=== PATIENT | female | born 1975 | race American Indian/Alaskan Native ===

== ENCOUNTER 2017-11-30 05:06 | Inpatient (IN) | payer MEDICAID ==
[2017-11-30] MEDS ORDERED: LACTATED RINGERS 1,000 ML ONE (05:46)
[2017-11-30] MEDS ORDERED: PITOCin/NS 20 UNIT/1000ML DRIP 20,000 MILLIUNITS/1,000 ML BAG IV ONE (05:58)
--- NOTE | 2017-11-30 06:09 | History and Physical Report ---
History of Present Illness Date of examination: 11/30/17 Date of admission: 11/30/17 05:39 Chief complaint: Painful contractions History of present illness: 42-year-old at 40+2 weeks presents in active labor, she is a [facility] patient. care has been unremarkable per patient. GBS unknown and I have no records at this time She is currently 8 cm dilated with bulging membranes, cephalic presentation Past History Past Medical History: no pertinent history Past Surgical History: no surgical history [employer] History: denies: chlamydia, gonorrhea, hepatitis B, hepatitis C, herpes, HIV , syphilis Social history: full code. denies: Lives alone, lives with family, smoking - Obstetrical History Expected Date of Delivery: 11/28/17 Actual Gestation: 40 Week(s) 2 Day(s) : 6 Para: 4 Medications and Allergies Allergies Allergy/AdvReac Type Severity Reaction Status Date / Time No Known Allergies Allergy Unverified 08/22/15 14:03 Home Medications Medication Instructions Recorded Confirmed Last Taken Type Nitrofurantoin Inyo/M-Cryst 100 mg PO Q12HR #14 capsule 08/22/15 Unknown Rx [Macrobid CAP] metroNIDAZOLE 0.75% [Vandazole 1 applicator VG QHS #1 tube 08/22/15 Unknown Rx 0.75% VAGINAL] Review of Systems Constitutional: no fever, no chills, no anorexia, no malaise Respiratory: no cough, no cough with sputum, no shortness of breath, no dyspnea on exertion Gastrointestinal: no abdominal pain, no nausea, no vomiting Genitourinary: contractions, no vaginal bleeding, no leakage of fluid - Vital Signs Vital signs: Vital Signs Pulse Pulse Ox 105 H 100 11/30/17 05:49 11/30/17 05:49 Temp Pulse Resp BP Pulse Ox 112 H 99 11/30/17 06:04 11/30/17 06:04 - Physical Exam Abdomen: Positive: normal appearance, soft. Negative: distention, tenderness, guarding, rigidity Genitourinary (Female): Positive: normal external genitalia Uterus: Positive: enlarged (EFW ~ 3500) Adnexa: both: normal Extremities: Positive: normal - Obstetrical FHR: category 1 Cervical Dilatation: 8.5 station: -1 Results All other labs normal. Assessment and Plan A: 42-year-old at 40+2 weeks in labor -Cat 1 tracing P: -Admit -Routine labs -AROMed with clear fluid -Anticipate normal vaginal delivery - Patient Problems (1) 40 weeks gestation of Current Visit: Yes Status: Acute (2) Active labor at term Current Visit: Yes Status: Acute
[2017-11-30] MEDS ORDERED: PITOCin/NS 30 UNIT/500ML 30,000 MILLIUNITS/500 ML BAG IV ONE (06:29)
[2017-11-30] MEDS ORDERED: SUBLIMAZE ONE (06:30)
--- NOTE | 2017-11-30 07:44 | Anesthesia Consultation ---
Anesthesia Consult and Med Hx Date of service: 11/30/17 - Airway Anesthetic Teeth Evaluation: Good ROM Head & Neck: Adequate Mental/Hyoid Distance: Adequate Mallampati Class: Class II Intubation Access Assessment: Probably Good - Pre-Operative Health Status ASA Pre-Surgery Classification: ASA2 Proposed Anesthetic Plan: Epidural, Spinal - Pulmonary Hx Asthma: No COPD: No Hx Pneumonia: No - Cardiovascular System Hx Hypertension: No - Central Nervous System Hx Seizures: No Hx Psychiatric Problems: No - Endocrine Hx Renal Disease: No Hx End Stage Renal Disease: No Hx Hypothyroidism: No Hx Hyperthyroidism: No - Hematic Hx Anemia: No Hx Sickle Cell Disease: No - Other Systems Hx Alcohol Use: No
--- NOTE | 2017-11-30 07:45 | Anesthesia Day of Surgery ---
Anesthesia Day of Surgery - Day of Surgery Patient Examined: Yes Patient H&P Reviewed: Yes Patient is NPO: Yes
[2017-11-30] MEDS ORDERED: LACTATED RINGERS 2,000 ML ONE (07:47)
[2017-11-30] MEDS ORDERED: PEPCID IV ONE (07:56)
[2017-11-30] MEDS ORDERED: BICITRA ONE (07:56)
[2017-11-30] MEDS ORDERED: SODIUM CHLORIDE FLUSH SYRINGE 10 ML IV PRN ×2 (08:00→09:00)
[2017-11-30] MEDS ORDERED: SUBLIMAZE IV NR (08:00)
--- NOTE | 2017-11-30 08:28 | Procedure Note ---
OB Delivery Note - Delivery Date of Delivery: 11/30/17 Surgeon: SHARON SHETTY Estimated blood loss: 100cc - Vaginal Delivery presentation: vertex Delivery position: OA Delivery induction: none Delivery augmentation: rupture of membranes Delivery monitor: external FHT, external uterine Route of delivery: Delivery placenta: spontaneous Delivery cord: 3 umbilical vessels Episiotomy: none Delivery laceration: 1st degree (not repaired) Anesthesia: none - A at 1 minute: 8 at 5 minutes: 9 Gender: Female (female time of delivery 8:13 AM, weight 7 lbs. 1 oz. or 3212 g)
[2017-11-30] MEDS ORDERED: ZOFRAN IV PRN ×2 (08:30→10:00)
[2017-11-30] MEDS ORDERED: TORADOL IV PRN (08:30)
[2017-11-30] MEDS ORDERED: DILAUDID IV PRN (08:30)
[2017-11-30] MEDS ORDERED: PHENERGAN PR PRN ×2 (08:30→10:00)
[2017-11-30] MEDS ORDERED: PHENERGAN PO PRN ×2 (08:30→10:00)
[2017-11-30] MEDS ORDERED: NARCAN 0.4 MG/1 ML IV PRN (08:30)
[2017-11-30] MEDS ORDERED: BENADRYL IV PRN (08:30)
[2017-11-30] MEDS ORDERED: PITOCin/NS 20 UNIT/1000ML DRIP 20 UNITS/1,000 ML BAG IV SCH (09:00)
[2017-11-30] MEDS ORDERED: LANSINOH TP PRN (09:30)
[2017-11-30] MEDS ORDERED: BENADRYL PO PRN (09:30)
[2017-11-30] MEDS ORDERED: TYLENOL PO PRN (09:30)
[2017-11-30 09:34] LABS: Hematocrit 30.2 % (30.3-42.9); Hemoglobin 9.6 gm/dl (10.1-14.3); Mean Corpuscular HGB Conc 32 % (30-34); Mean Corpuscular Volume 72 fl (79-97); Platelet Count 319 K/mm3 (140-440); Red Blood Count 4.19 M/mm3 (3.65-5.03)
[2017-11-30 09:55] LABS: Mean Corpuscular Hemoglobin 23 pg (28-32)
[2017-11-30 09:56] LABS: Red Cell Distribution Width 20.4 % (13.2-15.2)
[2017-11-30] MEDS ORDERED: DULCOLAX PR PRN (10:00)
[2017-11-30] MEDS ORDERED: TUCKS PAD TP PRN (10:00)
[2017-11-30] MEDS ORDERED: ANUCORT-HC PR PRN (10:00)
[2017-11-30] MEDS: NORCO 5/325 PO PRN ×2 (14:00→20:11)
[2017-11-30] MEDS: MOTRIN PO SCH ×2 (14:01→20:11)
[2017-11-30 21:14] LABS: Hematocrit 27.5 % (30.3-42.9); Hemoglobin 8.6 gm/dl (10.1-14.3)
[2017-11-30] MEDS ORDERED: MILK OF MAGNESIA PO PRN (22:00)
[2017-11-30] MEDS: FEOSOL PO SCH (22:00)
[2017-11-30] MEDS: SENOKOT S PO SCH (22:01)
[2017-11-30] MEDS: COLACE PO SCH (22:01)
[2017-12-01] MEDS: NORCO 5/325 PO PRN ×3 (02:32→23:28)
[2017-12-01] MEDS: MOTRIN PO SCH ×6 (02:33→23:28)
[2017-12-01] MEDS ORDERED: BOOSTRIX IM ONE (06:00)
--- NOTE | 2017-12-01 08:26 | Progress Note ---
Assessment and Plan - Patient Problems (1) (normal spontaneous vaginal delivery) Onset Date: 12/01/17 Current Visit: Yes Status: Resolved Plan to address problem: A: S/P - PPD #1 Doing well Asymptomatic anemia - stable P: May go home tomorrow. Subjective - Subjective Date of service: 12/01/17 Principal diagnosis: s/p - PPD #1 Interval history: Pt is feeling well except abdominal cramps. Bleeding improved. Patient reports: appetite normal, voiding normally, pain well controlled, flatus , ambulating normally : doing well, nursing well Objective - Vital Signs Latest vital signs: Vital Signs Temp Pulse Resp BP BP Pulse Ox 12/01/17 00:25 98.2 F 70 18 96/64 11/30/17 19:37 98.8 F 87 20 90/56 11/30/17 15:53 98.4 F 78 18 114/64 99 11/30/17 11:15 99.0 F 76 18 104/53 99 11/30/17 10:26 85 110/62 11/30/17 10:11 84 106/60 11/30/17 09:56 100 H 116/66 11/30/17 09:45 90 18 115/67 11/30/17 09:41 90 115/67 11/30/17 09:30 85 18 100/58 11/30/17 09:26 85 100/58 11/30/17 09:15 95 H 18 111/57 11/30/17 09:11 95 H 111/57 11/30/17 09:04 97 H 99 11/30/17 09:00 93 H 18 112/61 11/30/17 08:59 92 H 99 11/30/17 08:56 93 H 112/61 11/30/17 08:54 96 H 97 11/30/17 08:49 97 H 99 11/30/17 08:45 98.9 F 109 H 18 114/67 100 11/30/17 08:44 99 H 100 11/30/17 08:41 109 H 114/67 Intake and Output 11/30/17 12/01/17 12/01/17 22:59 06:59 14:59 Intake Total 480 360 Output Total 400 Balance 80 360 Intake: Oral 480 Intake, Free Water 360 Output: Urine 400 Void 400 Other: Total, Intake Amount 240 Total, Output Amount 400 # Voids Void 400 1 - Exam Breasts: Present: deferred Cardiovascular: Present: Regular rate Lungs: Present: Clear to auscultation Abdomen: Present: normal appearance, soft Uterus: Present: normal, firm, fundal height below umbilicus Extremities: Present: normal - Labs Labs: Abnormal lab results 11/30/17 11/30/17 Range/Units 21:05 Unknown Hgb 8.6 L 9.6 L (10.1-14.3) gm/dl Hct 27.5 L 30.2 L (30.3-42.9) % MCV 72 L (79-97) fl MCH 23 L (28-32) pg RDW 20.4 H (13.2-15.2) % Laboratory Tests 11/30/17 11/30/17 11/30/17 05:50 21:05 Unknown WBC 10.0 RBC 4.19 Hgb 8.6 L 9.6 L Hct 27.5 L 30.2 L MCV 72 L MCH 23 L MCHC 32 RDW 20.4 H Plt Count 319 Blood Type O POSITIVE Antibody Screen Negative
--- NOTE | 2017-12-01 08:28 | Discharge Summary ---
Providers - Providers Date of Admission: 11/30/17 05:39 Date of discharge: 12/02/17 Attending physician: SHARON SHETTY Primary care physician: SHARON SHETTY Hospitalization Reason for admission: active labor, IUP at term Delivery: Episiotomy: none Laceration: 1st degree Incision: normal Other procedures: none complications: none Discharge diagnosis: IUP at term delivered baby: female Hospital course: Unremarkable. Condition at discharge: Good Disposition: DC-01 TO HOME OR SELFCARE - Discharge Diagnoses (1) (normal spontaneous vaginal delivery) Status: Resolved Plan - Discharge Medications Prescriptions: HYDROcodone/ACETAMINOPHEN [Rosamond 5-325 Tablet] 1 each PO Q6HR #10 tablet Ibuprofen [Motrin 600 MG tab] 600 mg PO Q8H PRN #30 tablet PRN Reason: Pain Multivitamin with Iron [Multivitamins with Iron] 1 each PO DAILY #30 tablet - Provider Discharge Summary Activity: routine, no sex for 6 weeks, no heavy lifting 4 weeks, no strenuous exercise Diet: routine Instructions: routine Additional instructions: [] Smoking cessation referral if applicable(refer to patient education folder for contact #) [] Refer to [facility] Booklet Call your doctor immediately for: * Fever > 100.5 * Heavy vaginal bleeding ( >1 pad per hour) * Severe persistent headache * Shortness of breath * Reddened, hot, painful area to leg or breast * Drainage or odor from incision. * Keep incision clean and dry at all times and follow doctor's instructions regarding bathing/showering - Follow up plan Follow up: SHARON SHETTY MD [Primary Care Provider] - 6 Weeks
[2017-12-01] MEDS: SENOKOT S PO SCH ×2 (10:13→23:27)
[2017-12-01] MEDS: COLACE PO SCH ×2 (10:36→23:27)
[2017-12-01] MEDS: FEOSOL PO SCH ×2 (10:37→23:27)
[2017-12-01] MEDS: PRENATAL VITAMIN PO SCH (10:37)
[2017-12-02 01:13] VITALS: BP 112/68
[2017-12-02] MEDS: NORCO 5/325 PO PRN (11:20)
[2017-12-02] MEDS: MOTRIN PO SCH (11:30)
[2017-12-02] MEDS: PRENATAL VITAMIN PO SCH (12:35)
[2017-12-02] MEDS: COLACE PO SCH (12:36)
[2017-12-02] MEDS ORDERED: Fluarix Quad 2017-2018(36 MOS+ IM ONE (13:22)
== END 2017-12-02 13:00 | disposition home or self-care (01) | DRG 775 ==
LOC: TRG 05:06 → LD 05:39 → OB 11:34
PROVIDERS: ADMIT Obstetrics & Gynecology Gynecology; ATTEND Obstetrics & Gynecology Gynecology
PROC: 10E0XZZ Delivery of Products of Conception, External Approach (ICD-10-PCS; principal; 2017-11-30)
PROC: 3E0234Z Introduction of Serum, Toxoid and Vaccine into Muscle, Percutaneous Approach (ICD-10-PCS; 2017-12-01)
DX: O70.0 First degree perineal laceration during delivery (principal); O90.81 Anemia of the puerperium; D64.9 Anemia, unspecified; Z3A.40 40 weeks gestation of pregnancy; Z37.0 Single live birth; Z23 Encounter for immunization
CPT/HCPCS: 36415; 85014; 85018; 85027; 86850; 86900; 86901; 90471; 90686; 90715; 99211; A6250; G0463; J2590; J3010; J7120